=== PATIENT | male | born 1995 | race Caucasian/White ===

== ENCOUNTER 2019-09-08 21:43 | Emergency (ER) | payer OTHER, SELFPAY ==
[2019-09-08 21:46] VITALS: BP 144/78; PULSE 121; RESP 18; TEMP 36.9; O2SAT 99; BMI 24.4
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
[2019-09-08] MEDS: ipratropium-albuterol 3 mL Neb INHALATION (22:26)
[2019-09-08 22:27] VITALS: RESP 32; O2SAT 96
[2019-09-08] MEDS: morphine 4 mg/mL SDV 1 mL IVP (22:27)
[2019-09-08 22:28] VITALS: PULSE 130; RESP 26; O2SAT 98
[2019-09-08 22:31] VITALS: PULSE 142; RESP 24; O2SAT 97
[2019-09-08] MEDS: fentaNYL 50 mcg/mL INJ 2mL 100 MCG IVP ×2 (22:45→23:51)
[2019-09-08] MEDS: ondansetron 2 mg/ML SDV 2 mL 4 MG IVP (22:45)
--- NOTE | 2019-09-08 23:22 | PC.NURSE ---
PT RETURNS FROM CT, STATES PAIN IS 10/10 ALTHOUGH PT IS MORE CALM THAN HE WAS UPON ARRIVAL TO ED. C/O TEETH HURTING, NO BROKEN TEETH NOTED. UPPER LIP SWOLLEN. WILL CONT TO MONITER.
[2019-09-08 23:44] LABS: Basophils % 0.3 %; Eosinophils % 0.1 %; Hematocrit 47.4 % (42.0-52.0); Hemoglobin 16.6 g/dL (11.7-16.6); Lymphocytes % 14.6 %; Mean Corpuscular Hemoglobin 29.2 pg (28.0-34.0); Mean Corpuscular Volume 83.5 fL (80-94); Mean Platelet Volume 9.2 fL (7.4-10.4); Monocytes % 6.9 %; Neutrophils # 10.8 10^3/uL (1.8-7.7); Neutrophils % 76.8 %; Nucleated Red Blood Cells % 0 %; Platelet Count 339 10^3/cmm (130-400); Red Blood Count 5.68 10^6/uL (4.1-5.3)
[2019-09-08 23:53] VITALS: BP 140/90; PULSE 65; RESP 18; O2SAT 96
[2019-09-09 00:10] LABS: Alanine Aminotransferase 26 U/L (0-41); Albumin Level 4.8 g/dL (3.5-5.2); Alcohol Level 99 mg/dL (0-10); Alkaline Phosphatase 64 IU/L (40-130); Anion Gap 22.4 (5-19); Blood Urea Nitrogen 11 mg/dL (6-20); Calcium 9.9 mg/Dl (8.6-10.0); Carbon Dioxide 17 mmol/L (22-29); Chloride 100 mmol/L (98-107); Globulin 2.6 g/dL (1.3-4.6); Glomerular Filtration Rate 105.5 mL/min (90-130); Glucose 100 mg/dL (74-109); Potassium 3.4 mmol/L (3.5-5.1); Sodium 136 mmol/L (136-145); Total Protein 7.4 g/dL (6.6-8.7)
[2019-09-09 00:25] LABS: Amphetamines Screen Urine Negative (Negative); Barbiturates Screen Urine Negative (Negative); Benzodiazepines Screen Urine Negative (Negative); Cocaine Screen Urine Negative (Negative); Opiate Screen Urine Negative (Negative); PCP Screen Urine Negative (Negative); THC Screen Urine Positive (Negative)
[2019-09-09 00:30] LABS: Aspartate Amino Transferase 32 U/L (0-40)
[2019-09-09] MEDS: fentaNYL 50 mcg/mL INJ 2mL IVP (01:34)
[2019-09-09 01:44] VITALS: PULSE 85; RESP 16; O2SAT 96
[2019-09-09] MEDS: HYDROcodone-acetaminophen 5-325 mg Tablet 1 TAB PO (02:36)
[2019-09-09 02:47] VITALS: BP 122/72; PULSE 93; RESP 18; O2SAT 98
[2019-09-09] MEDS: ondansetron 4 MG Tablet PO (02:57)
--- NOTE | 2019-09-10 12:51 | DCPLANNER ---
photography manager had message to schedule a follow up appointment for patient with Dr. Cardoso. photography manager called the [facility], spoke with Haritha, gave clinic patients information. photography manager was told that patients information would be printed off and given to Myles for review. Clinic will call patient with appointment information. photography manager will call clinic for appointment information.
--- NOTE | 2019-09-11 11:29 | DCPLANNER ---
Myles from Dr. Nicole office called case assembler with appointment information. manager content was told that a follow up appointment is scheduled for Wednesday, November 13, 2019 at 9:00 with SERVICE LINE COORDINATOR, Michelle Lewis. manager content was told that clinic contacted patient with appointment information.
--- NOTE | 2019-11-14 14:24 | DCPLANNER ---
Patient did attend follow up appointment with Dr. Nicole office.
== END 2019-09-09 02:48 | disposition home or self-care (01) ==
PROVIDERS: Physician Assistant; Emergency Provider Emergency Medicine
DX: S22.089A Unspecified fracture of T11-T12 vertebra, initial encounter for closed fracture (principal); S32.019A Unspecified fracture of first lumbar vertebra, initial encounter for closed fracture; S32.029A Unspecified fracture of second lumbar vertebra, initial encounter for closed fracture; S27.321A Contusion of lung, unilateral, initial encounter; F17.210 Nicotine dependence, cigarettes, uncomplicated; V89.2XXA Person injured in unspecified motor-vehicle accident, traffic, initial encounter
CPT/HCPCS: 70450; 70486; 71045; 71260; 72125; 72128; 72131; 74177; 80053; 80307; 85025; 96374; 99281; J2270; J2405; J3010; Q0162; Q9967

== ENCOUNTER 2019-10-04 14:17 | Outpatient (CLI) | payer OTHER, SELFPAY ==
--- NOTE | 2019-10-04 15:00 | CT_ITS ---
WS: [id number] CT LUMBAR SPINE TECHNIQUE: Noncontrast CT of the lumbar spine with coronal and sagittal reformatted images. CLINICAL INFORMATION: Vertebral fractures COMPARISON: CT DLP: 2324.[address] scans at [facility] use at least one of these dose optimization techniques: automat ed exposure control; mA and/or kV adjustment per patient size (includes targeted exams where dose is matched to clinical indication); or iterative reconstruction. FINDINGS: Mild lumbar curve. Again seen is mild compression superior endplates at L1, L2, and L3. Small anterio r superior corner fracture at L1 with minimal displacement. Only mild loss vertebral body height at a ll levels. Mild compression most prominent at L1. No retropulsion. L3 superior compression fracture i s more apparent today. T12 is incompletely included on this study. L3-L4: Normal. L4-L5: Mild annular bulging with slight effacement of the ventral thecal sac. Spinal canal and forame n are patent. L5-S1: Mild annular bulging with slight effacement of the ventral thecal sac. Spinal canal and forame n are patent. Visualized pelvic bony structures: Normal. Paravertebral soft tissues: Normal. CT/CT lumbar spine wo con* [id number] IMPRESSION: 1. Mild compression fractures involving superior endplates at L1, L2 and L3. L 3 slight compression is more apparent today. 2. Anterior wedging at L1 with tiny anterior superior corner fracture with min imal displacement. No retropulsion. 3. T12 is incompletely included on this study today but previously demonstrate d superior endplate compression. 4. Mild annular bulging L4-L5 and L5-S1 without significant spinal canal narro wing.
== END 2019-10-04 14:18 | disposition home or self-care (01) ==
LOC: RAD 14:21
PROVIDERS: Visit Provider Licensed Practical Nurse
DX: S22.000A Wedge compression fracture of unspecified thoracic vertebra, initial encounter for closed fracture (principal); S32.000A Wedge compression fracture of unspecified lumbar vertebra, initial encounter for closed fracture; X58.XXXA Exposure to other specified factors, initial encounter
CPT/HCPCS: 72131

== ENCOUNTER 2019-11-01 16:11 | Outpatient (CLI) | payer OTHER, SELFPAY ==
--- NOTE | 2019-11-01 16:00 | CT_ITS ---
WS: [id number] CT LUMBAR SPINE TECHNIQUE: Noncontrast CT of the lumbar spine with coronal and sagittal reformatted images. CLINICAL INFORMATION: Fracture COMPARISON: October 04, 2019 DLP: 1474.[address] scans at [facility] use at least one of these dose optimization techniques: automat ed exposure control; mA and/or kV adjustment per patient size (includes targeted exams where dose is matched to clinical indication); or iterative reconstruction. FINDINGS: Mild lumbar curve. Mild compression fractures involving superior endplates at L1, L2, and L3. Small a nterior superior corner fracture L1 with minimal displacement is unchanged. Mild loss vertebral body height at all 3 levels is stable. No retropulsion. No high-grade central canal stenosis. CT/CT lumbar spine wo con* [id number] IMPRESSION: 1. Mild compression fractures involving the superior endplates at L1, L2, and L3 unchanged. 2. Anterior wedging at L1 with small anterior superior corner fracture. No ret ropulsion. 3. No high-grade central canal stenosis.
--- NOTE | 2019-11-01 16:00 | CT_ITS ---
WS: [id number] CT THORACIC SPINE TECHNIQUE: Noncontrast CT of the thoracic spine with coronal and sagittal reformatted images. CLINICAL INFORMATION: Fracture COMPARISON: CT September 08, 2019 DLP: 1179.[address] scans at [facility] use at least one of these dose optimization techniques: automat ed exposure control; mA and/or kV adjustment per patient size (includes targeted exams where dose is matched to clinical indication); or iterative reconstruction. FINDINGS: Mild thoracic curve. Again seen is the superior endplate compression fractures at L1. Mild anterior wedging at T12 is unch anged. No retropulsion. Small anterior superior corner fracture involving the L1 vertebral body. Schm orl's node superior endplate at T12. Adrenal glands are normal. Normal GE junction. CT/CT thoracic spin wo con* [id number] IMPRESSION: 1. Anterior superior compression fracture L1 vertebral body is unchanged in ap pearance with anterior superior corner fracture. No retropulsion. 2. Stable anterior wedging at T12. 3. No retropulsion. 4. No new fractures.
== END 2019-11-01 16:12 | disposition home or self-care (01) ==
LOC: RADWPI 16:18
PROVIDERS: Visit Provider Licensed Practical Nurse
DX: S32.000A Wedge compression fracture of unspecified lumbar vertebra, initial encounter for closed fracture (principal); S22.000A Wedge compression fracture of unspecified thoracic vertebra, initial encounter for closed fracture; X58.XXXA Exposure to other specified factors, initial encounter
CPT/HCPCS: 72128; 72131

== ENCOUNTER 2020-02-09 19:38 | Emergency (ER) | payer OTHER, SELFPAY ==
[2020-02-09 20:02] VITALS: BP 115/86; PULSE 70; RESP 16; TEMP 37.1; O2SAT 98; BMI 23.7
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
[2020-02-09 20:46] LABS: Basophils % 0.3 %; Eosinophils % 0.3 %; Hematocrit 50.2 % (42.0-52.0); Hemoglobin 17.5 g/dL (11.7-16.6); Lymphocytes # 1.3 10^3/uL (0.8-4.8); Lymphocytes % 10.1 %; Mean Corpuscular HGB Conc 34.9 g/dL (30.0-36.0); Mean Corpuscular Hemoglobin 30.1 pg (28.0-34.0); Mean Corpuscular Volume 86.3 fL (80-94); Mean Platelet Volume 9.4 fL (7.4-10.4); Monocytes # 0.9 10^3/uL (0.2-0.9); Monocytes % 6.8 %; Neutrophils # 10.4 10^3/uL (1.8-7.7); Neutrophils % 82.2 %; Nucleated Red Blood Cells % 0 %; Platelet Count 342 10^3/cmm (130-400); Red Blood Count 5.82 10^6/uL (4.1-5.3); Red Cell Distribution Width 12.5 % (12.1-15.1); White Blood Count 12.7 10^3/uL (4.0-10.0)
[2020-02-09 20:57] VITALS: BP 132/91; PULSE 83; RESP 16; O2SAT 97
[2020-02-09 21:09] LABS: Alanine Aminotransferase 20 U/L (0-41); Albumin Level 5.2 g/dL (3.5-5.2); Alkaline Phosphatase 54 IU/L (40-130); Anion Gap 21.5 (5-19); Aspartate Amino Transferase 17 U/L (0-40); Blood Urea Nitrogen 12 mg/dL (6-20); Calcium 10.8 mg/dL (8.5-10.5); Carbon Dioxide 19 mmol/L (22-29); Chloride 102 mmol/L (98-107); Globulin 3.4 g/dL (1.3-4.6); Glomerular Filtration Rate 104.6 mL/min (90-130); Glucose 91 mg/dL (65-115); Lipase 14 U/L (13-60); Osmolality Calculated 284 mOsm/kg (285-295); Potassium 3.5 mmol/L (3.5-5.1); Sodium 139 mmol/L (136-145); Total Bilirubin 3.2 mg/dL (0.15-1.2); Total Protein 8.6 g/dL (6.6-8.7)
[2020-02-09 21:10] LABS: Alcohol Level < 10 mg/dL (0-10)
[2020-02-09] MEDS: ondansetron 2 mg/ML SDV 2 mL 4 MG IVP (21:17)
[2020-02-09] MEDS: sodium chloride 0.9% 1,000 ML 999 ML IV ×2 (21:18→22:43)
[2020-02-09] MEDS: metoclopramide 5 mg/mL SDV 2 mL 10 MG IVP (22:16)
[2020-02-09 22:17] VITALS: BP 98/70; PULSE 76; RESP 16; O2SAT 98
--- NOTE | 2020-02-09 22:31 | PC.NURSE ---
PATIENT AMBULATED TO BATHROOM WITH CLEAN CATCH PACKAGING AND CLEAN CATCH EDUCATION PROVIDED TO PATIENT BY NURSE
[2020-02-09 22:53] LABS: Bilirubin Urine Neg (NEGATIVE); Blood Urine Neg (Negative); Glucose Urine UA Norm (Normal); Ketones Urine 3+ (Negative); Leukocyte Esterase Urine Negative (Negative); Nitrate Urine Negative (Negative); Protein Urine Neg (Negative); Urine Appearance Clear (CLEAR); Urine Color Yellow (Yellow); Urobilinogen Urine Norm (Negative); pH Urine 5 (5-7)
[2020-02-09 22:54] LABS: Bacteria Urine TRACE; RBC Urine RARE /hpf (0-2); Squamous Epithelial Cell Urine 0-4 (0-5); WBC Urine 0-4 /hpf (0-5)
[2020-02-09 22:55] LABS: Add Urine Culture? No; Mucus Urine 1+
[2020-02-10 00:51] VITALS: BP 105/52; PULSE 87; RESP 18; TEMP 37.1; O2SAT 98
== END 2020-02-10 00:53 | disposition home or self-care (01) ==
PROVIDERS: Emergency Provider Physician Assistant
DX: F10.129 Alcohol abuse with intoxication, unspecified (principal); Y90.9 Presence of alcohol in blood, level not specified; F17.210 Nicotine dependence, cigarettes, uncomplicated
CPT/HCPCS: 12345; 80053; 80307; 81001; 83690; 85025; 87040; 96361; 96374; 96375; 99283; J2405; J2765; J7030

== ENCOUNTER 2020-09-24 00:57 | Emergency (ER) | payer BC, SELFPAY ==
[2020-09-24 01:07] VITALS: BP 148/81; PULSE 95; RESP 19; TEMP 36.7; O2SAT 97; BMI 24.4
--- NOTE | 2020-09-24 01:11 | XR_ITS ---
WS: [id number] Portable AP upright chest, 09/24/2020 Clinical Data: cough Comparison: Portable chest, 09/08/2019. Findings: No nodules, masses or effusions are seen. The heart is normal. The pulmonary vascularity is not increased. No pneumonia or pneumothorax is seen. XR/XR chest 1V portable [id number] Impression: Negative chest.
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
[2020-09-24 01:26] VITALS: O2SAT 97
[2020-09-24] MEDS: predniSONE 20 mg Tablet 60 MG PO (01:28)
[2020-09-24 01:44] VITALS: BP 148/81; PULSE 95; O2SAT 93
[2020-09-24] MEDS: albuterol 8 gm MDI 2 PUFF INHALATION (01:59)
[2020-09-24 02:00] VITALS: PULSE 80; RESP 19; O2SAT 96
[2020-09-24 02:27] VITALS: BP 119/79; PULSE 78; RESP 17; O2SAT 93
[2020-09-24 15:32] LABS: Coronavirus Test Green County Not Detected
--- NOTE | 2020-09-26 12:00 | PC.NURSE ---
Patient notified of COVID results at this time.
== END 2020-09-24 02:23 | disposition home or self-care (01) ==
PROVIDERS: Emergency Provider Emergency Medicine
DX: J40 Bronchitis, not specified as acute or chronic (principal); F17.210 Nicotine dependence, cigarettes, uncomplicated
CPT/HCPCS: 12345; 71045; 87635; 94640; 99281; 99283; J3535; J7512